=== PATIENT | male | born 1980 | race Caucasian/White ===

== ENCOUNTER 2019-11-16 12:41 | Emergency (ER) | payer MEDICAID ==
[~2019-11-16] VITALS: Ht 182.9 cm; Wt 90.9 kg
--- NOTE | 2019-11-16 13:52 | NUR ---
RELIEVING RN FOR BREAK, PT IS IN CUSTODY WITH , RESTING QUIETLY ON GURNEY, WAITING FOR XRAY
[2019-11-16 14:31] VITALS: BP 145/102
== END 2019-11-16 15:16 ==
LOC: ER 12:43 → EEVIPCON 12:43 → ER 15:16
DX: R10.30 Lower abdominal pain, unspecified (principal); F12.90 Cannabis use, unspecified, uncomplicated; Z56.0 Unemployment, unspecified
CPT/HCPCS: 74018; 99283